=== PATIENT | female | born 1995 | race American Indian/Alaskan Native ===

== ENCOUNTER 2017-09-13 13:47 | Emergency (ER) | payer OTHER ==
[2017-09-13 14:02] VITALS: BP 112/67
[2017-09-13 14:46] LABS: HCG Qualitative,Urine Negative (Negative)
--- NOTE | 2017-09-13 16:30 | Emergency Department Report ---
Chief Complaint: Medical Clearance Stated Complaint: LACK OF MEDICATION INTAKE Time Seen by Provider: 09/13/17 15:50 - HPI History of Present Illness: Patient is a 22-year-old asthmatic female who states she wants a second opinion on which medication she should take. Patient is on medications for bipolar disorder. Patient states that that her medicines are making her too sleepy so she stopped taking them. Patient is not having any auditory hallucinations, some suicidal ideations at this time. Patient also states she has twisted her right ankle several times in the past year and it still hurts. Patient denies any current injury. Patient states the pain is a 5 out of 10 and hurts with walking. - ROS Review of Systems: All systems reviewed are negative - Exam Vital Signs: Vital Signs 09/13/17 13:58 Temperature 99.1 F Pulse Rate 83 Respiratory 18 Rate Blood Pressure 112/67 O2 Sat by Pulse 100 Oximetry Physical Exam: In general patient is alert and oriented 3. Patient is calm. Heart exam patient is heart tones are within normal limits. Abdomen soft nontender. Lungs are clear to auscultation. Patient's right ankle there is some very slight tenderness to the area just anterior of the lateral malleolus but otherwise there is no swelling she has full range of motion MSE screening note: Focused history and physical exam performed. Due to findings the following was ordered: ED Medical Decision Making - Medical Decision Making Patient has [employer] insurance and can easily go to their facility to make appointments to see orthopedic doctor as well as mental health specialist. Patient has no acute medical condition at this time. Patient is deemed nonmedical emergency be discharged home. ED Disposition for [facility] [place] Clinical Impression: Mental health problem Ankle sprain Qualifiers: Encounter type: subsequent encounter Involved ligament of ankle: unspecified ligament Laterality: right Qualified Code(s): S93.401D - Sprain of unspecified ligament of right ankle, subsequent encounter Disposition: Z-07 MED SCREENING EXAM-LEFT Is pt being admited?: No Does the pt Need Aspirin: No Condition: Stable Referrals: PRIMARY CARE, [Primary Care Provider] - 3-5 Days
== END 2017-09-13 16:36 | disposition left against medical advice (07) ==
LOC: ED 13:47
DX: S93.401A Sprain of unspecified ligament of right ankle, initial encounter (principal); X50.9XXA Other and unspecified overexertion or strenuous movements or postures, initial encounter; Y93.89 Activity, other specified; Y92.89 Other specified places as the place of occurrence of the external cause; Y99.8 Other external cause status
CPT/HCPCS: 81025; 99282; 99283